=== PATIENT | male | born 1980 | race Caucasian/White ===

== ENCOUNTER 2017-02-14 22:17 | Emergency (ER) | payer BC ==
[~2017-02-14] VITALS: Ht 185.4 cm; Wt 115.9 kg
[2017-02-14] MEDS ORDERED: PAXI25TA13 PO (22:27)
[2017-02-14] MEDS ORDERED: ASPIRIN 81 MG CHEW TABLET PO ONE (23:15)
[2017-02-14 23:28] LABS: VENOUS BASE EXCESS 3.8 (-2.0-2.0); VENOUS O2 SATURATION 70.7 % (60.0-80.0); VENOUS PARTIAL PRESSURE CO2 57.9 mmHg (38.0-50.0); VENOUS PARTIAL PRESSURE O2 36.8 mmHg (30.0-50.0); VENOUS STANDARD HCO3 27.1 MEQ/L
[2017-02-14 23:39] LABS: BASO # 0.1 10^3/uL (0.0-0.2); BASO % 0.6 % (0.0-1.0); EOS # 0.7 10^3/uL (0.0-0.50); EOS % 6.3 % (0.0-3.0); IMMATURE GRANULOCYTE % 0.3 % (0-0); LYMPH % 29.1 % (24.0-44.0); MEAN CORPUSCULAR HEMOGLOBIN 28.4 pg (27.0-33.0); MEAN CORPUSCULAR HGB CONC 32.3 g/dl (32.0-36.5); MEAN CORPUSCULAR VOLUME 87.8 fl (80.0-96.0); MONO # 0.9 10^3/uL (0.0-0.8); MONO % 8.2 % (0.0-5.0); NEUTROPHILS # 5.8 10^3/uL (1.8-7.7); NEUTROPHILS % 55.5 % (36.0-66.0); PLATELET COUNT, AUTOMATED 274 10^3/uL (150-450); RED CELL DISTRIBUTION WIDTH 13.4 % (11.5-14.5); WHITE BLOOD COUNT 10.4 10^3/uL (4.0-10.0)
[2017-02-14] MEDS: NITROGLYCERIN 0.4 MG SUBL TABLET SL PRN ×2 (23:40→23:52)
[2017-02-14 23:42] LABS: ALBUMIN/GLOBULIN RATIO 1.14 (1.00-1.93); ALKALINE PHOSPHATASE 93 U/L (45-117); ALT/SGPT 39 U/L (12-78); ANION GAP 6 MEQ/L (8-16); AST/SGOT 22 U/L (15-37); BILIRUBIN,DIRECT < 0.1 MG/DL (0.0-0.2); BILIRUBIN,TOTAL 0.2 MG/DL (0.2-1.0); BLOOD UREA NITROGEN 15 MG/DL (7-18); CALCIUM LEVEL 9.3 MG/DL (8.5-10.1); CARBON DIOXIDE LEVEL 31 MEQ/L (21-32); CHLORIDE LEVEL 103 MEQ/L (98-107); CREATININE FOR GFR 0.96 MG/DL (0.70-1.30); GLOMERULAR FILTRATION RATE > 60.0 (>60); GLUCOSE, FASTING 110 MG/DL (70-105); POTASSIUM SERUM 3.8 MEQ/L (3.5-5.1); SODIUM LEVEL 140 MEQ/L (136-145); TOTAL PROTEIN 7.5 GM/DL (6.4-8.2)
[2017-02-15] MEDS ORDERED: ACETAMINOPHEN TAB 650MG DOSE (2X325MG) PO ONE
[2017-02-15 04:19] VITALS: BP 109/67
--- NOTE | 2017-02-15 08:00 | REP ---
Chest two views HISTORY: Chest pain Comparison: None The lungs are clear. The heart is normal in size. The pulmonary vasculature is normal in appearance. The bony structure is intact. IMPRESSION: No acute disease. Signed by Hank Brock MD 02/15/2017 07:51 A
--- NOTE | 2017-02-15 08:33 | ECGEPIP ---
Stationary ECG Study [facility] - ED Test Date: 2017-02-14 Pat Name: MENA PERDOMO Department: Room: - Gender: M [employer]: ct : 1980 Requested By: SILVERIO Davis Order Number: [id number] Reading MD: Darian Walker Measurements Intervals [place] Rate: 71 P: 49 ME: 180 QRS: 18 QRSD: 101 T: 39 QT: 363 QTc: 395 Interpretive Statements SINUS RHYTHM Electronically Signed On 02-15-2017 8:33:32 EDT by Darian Walker
--- NOTE | 2017-02-15 08:35 | ECGEPIP ---
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
== END 2017-02-15 04:48 | disposition home or self-care (01) ==
LOC: M ED 23:29
DX: R07.9 Chest pain, unspecified (principal); F41.9 Anxiety disorder, unspecified; Z79.899 Other long term (current) drug therapy; Z87.891 Personal history of nicotine dependence

== ENCOUNTER 2019-08-09 19:03 | Emergency (ER) | payer BC ==
[~2019-08-09] VITALS: Ht 190.5 cm; Wt 118.2 kg
[~2019-08-09 19:03] MED LIST: PAXI25TA13 PO
[2019-08-09 19:48] LABS: VENOUS O2 SATURATION 76.3 % (60.0-80.0); VENOUS PARTIAL PRESSURE CO2 26.7 mmHg (38.0-50.0); VENOUS PARTIAL PRESSURE O2 36.9 mmHg (30.0-50.0); VENOUS PH 7.469 UNITS (7.330-7.430); VENOUS STANDARD HCO3 21.5 MEQ/L; VENOUS TOTAL CO2 19.8 MEQ/L (24.0-28.0)
[2019-08-09 19:54] LABS: BASO % 0.3 % (0.0-1.0); EOS # 0.3 10^3/uL (0.0-0.5); EOS % 2.3 % (0.0-3.0); HEMOGLOBIN 15.7 g/dl (13.5-17.5); LYMPH # 0.7 10^3/uL (1.5-5.0); LYMPH % 5.8 % (24.0-44.0); MEAN CORPUSCULAR HEMOGLOBIN 29.5 pg (27.0-33.0); MEAN CORPUSCULAR HGB CONC 33.4 g/dl (32.0-36.5); MEAN CORPUSCULAR VOLUME 88.3 fl (80.0-96.0); MONO # 0.7 10^3/uL (0.0-0.8); MONO % 5.1 % (0.0-5.0); NEUTROPHILS # 11.1 10^3/uL (1.5-8.5); NEUTROPHILS % 86.2 % (36.0-66.0); PLATELET COUNT, AUTOMATED 279 10^3/uL (150-450); RED BLOOD COUNT 5.32 10^6/uL (4.30-6.10); WHITE BLOOD COUNT 12.8 10^3/uL (4.0-10.0)
--- NOTE | 2019-08-09 20:08 | REP ---
Clinical: Cough and dyspnea . Comparison: 02/14/2017 . Findings: The mediastinum and cardiac silhouette are stable and within normal limits for portable technique. The lung lundberg are clear without acute consolidation, effusion, or pneumothorax. Skeletal structures are intact. Impression: No acute cardiopulmonary process appreciated. Electronically Signed by William Evans MD 08/09/2019 08:00 P
[2019-08-09 20:22] LABS: BLOOD UREA NITROGEN 14 MG/DL (7-18); CALCIUM LEVEL 8.7 MG/DL (8.5-10.1); CARBON DIOXIDE LEVEL 30 MEQ/L (21-32); CHLORIDE LEVEL 103 MEQ/L (98-107); CREATININE FOR GFR 0.94 MG/DL (0.70-1.30); GLOMERULAR FILTRATION RATE > 60.0 (>60); GLUCOSE, FASTING 93 MG/DL (70-100); POTASSIUM SERUM 4.3 MEQ/L (3.5-5.1); SODIUM LEVEL 138 MEQ/L (136-145)
[2019-08-09 20:30] VITALS: BP 149/81
== END 2019-08-09 20:45 | disposition home or self-care (01) ==
LOC: M ED 19:03
DX: B34.9 Viral infection, unspecified (principal); R06.02 Shortness of breath; F42.9 Obsessive-compulsive disorder, unspecified; Z79.899 Other long term (current) drug therapy
CPT/HCPCS: 71045; 80048; 82803; 85025; 87486; 87581; 87633; 87798; 99284; U0002